=== PATIENT | female | born 1950 | race Two or more races ===

== ENCOUNTER 2020-05-26 09:31 | Outpatient (CLI) | payer OTHER | END 2020-05-26 10:30 | disposition home or self-care (01) | LOC: OFIC 805 09:31 | PROVIDERS: ATTEND Otolaryngology | DX: R22.1 Localized swelling, mass and lump, neck (principal); J03.80 Acute tonsillitis due to other specified organisms ==

== ENCOUNTER 2020-06-03 10:18 | Outpatient (CLI) | payer OTHER | END 2020-06-03 11:30 | disposition home or self-care (01) | LOC: OFIC 805 10:18 | PROVIDERS: ATTEND Otolaryngology | DX: R22.1 Localized swelling, mass and lump, neck (principal); J03.80 Acute tonsillitis due to other specified organisms ==

== ENCOUNTER 2020-06-06 08:00 | Outpatient (CLI) | payer OTHER | END 2020-06-06 08:02 | disposition home or self-care (01) | LOC: SONOGRAMA 08:00 | PROVIDERS: ATTEND Pathology Anatomic Pathology & Clinical Pathology | DX: C85.81 Other specified types of non-Hodgkin lymphoma, lymph nodes of head, face, and neck (principal) ==

== ENCOUNTER → 2020-06-21 | Outpatient (CLI) | payer OTHER | END | disposition home or self-care (01) | LOC: OFIC 805 06-07 10:15 | PROVIDERS: ATTEND Otolaryngology | DX: C85.81 Other specified types of non-Hodgkin lymphoma, lymph nodes of head, face, and neck (principal); R22.1 Localized swelling, mass and lump, neck ==

== ENCOUNTER → 2020-07-15 08:00 | Outpatient (CLI) | payer OTHER ==
[~2020-07-15 08:00] MED LIST: BACLOFEN10 MG; CAPOTEN12.5 MG; DECADRON4 MG; FOSAMAX70 MG; ORAPRED ODT10 MG; STIOLTO RESPIMAT4 GM; ZETIA10 MG; ZOCOR40 MG
== END | disposition home or self-care (01) ==
LOC: LAB 08:00 → ADM 09:30 → CIR.AMB 07-18 07:45 → EDSTATUS 07-18 09:30 → CIR.AMB 07-18 09:30 → SURH 08-15 07:00 → EDSTATUS 08-15 09:30 → SURH 08-15 09:30
PROVIDERS: ATTEND Surgery
DX: R22.1 Localized swelling, mass and lump, neck (principal); Z20.828 Contact with and (suspected) exposure to other viral communicable diseases; C85.81 Other specified types of non-Hodgkin lymphoma, lymph nodes of head, face, and neck; Z01.810 Encounter for preprocedural cardiovascular examination; Z01.812 Encounter for preprocedural laboratory examination; Z01.811 Encounter for preprocedural respiratory examination

== ENCOUNTER → 2020-08-04 | Outpatient (CLI) | payer OTHER | END | disposition home or self-care (01) | LOC: OFIC 805 13:45 | PROVIDERS: ATTEND Otolaryngology | DX: C85.81 Other specified types of non-Hodgkin lymphoma, lymph nodes of head, face, and neck (principal); R22.1 Localized swelling, mass and lump, neck ==

== ENCOUNTER 2020-09-19 05:25 | Day surgery (SDC) | payer OTHER ==
[~2020-09-19] VITALS: Ht 152.4 cm; Wt 57.2 kg
[2020-09-19] MEDS ORDERED: ONDANSETRON HCL4 MG (07:53)
[2020-09-19] MEDS ORDERED: FAMOTIDINE20 MG (07:53)
[2020-09-19] MEDS ORDERED: PREDNISONE20 M1 (07:53)
[2020-09-19] MEDS ORDERED: OMEPRAZOLE20 MG (07:54)
== END 2020-09-19 12:00 | disposition home or self-care (01) ==
LOC: CIR.AMB 05:25 → SURH 09:30 → O/R 10:20 → SURH 11:45 → EDSTATUS 11:45 → CIR.AMB 12:00
PROVIDERS: ATTEND Surgery
DX: C85.81 Other specified types of non-Hodgkin lymphoma, lymph nodes of head, face, and neck (principal); Z20.822 Contact with and (suspected) exposure to COVID-19
CPT/HCPCS: 36561; C1751